=== PATIENT | male | born 1980 | race Caucasian/White ===

== ENCOUNTER → 2023-01-01 08:53 | Outpatient (POV) | payer OTHER, SELFPAY | PROVIDERS: Visit Provider Dermatology | DX: Z00.00 Encounter for general adult medical examination without abnormal findings (principal) ==

== ENCOUNTER 2025-09-06 10:16 | Outpatient (CLI) | payer BC, SELFPAY ==
[2025-09-06 16:46] LABS: Hematocrit 50.1 % (42.0-52.0); Hemoglobin 16.9 g/dL (14.1-18.0); Immature Granulocytes % 0.5 %; Mean Corpuscular HGB Conc 33.7 g/dL (31.8-35.4); Mean Corpuscular Hemoglobin 28.9 pg (27.0-31.2); Mean Corpuscular Volume 85.6 fl (80-94); Nucleated Red Blood Cells % 0 %; Platelet Count 210 K/mm3 (142-424); Red Blood Count 5.85 M/mm3 (4.60-6.20); Red Cell Distribution Width-SD 40.1 fL; White Blood Count 4.4 K/mm3 (4.8-10.8)
[2025-09-06 17:34] LABS: Alanine Aminotransferase 48 U/L (12-78); Albumin Level 4.8 g/dl (3.5-5.0); Albumin/Globulin Ratio 1.7 (1.1-1.8); Alkaline Phosphatase 67 U/L (38-126); Anion Gap 16.2 mEq/L (5-15); Aspartate Amino Transferase 37 U/L (17-59); Bilirubin,Total 0.7 mg/dl (0.2-1.3); Blood Urea Nitrogen 15 mg/dl (9-20); Calcium 9.5 mg/dl (8.4-10.2); Carbon Dioxide 23 mmol/L (22.0-30.0); Chloride 101 mmol/L (98-107); Cholesterol 100 mg/dl (140-200); Creatinine,Serum 1.00 mg/dl (0.66-1.25); Estimated Glomerular Filt Rate 81 ml/min (>60); GFR (African American) 98 ML/MIN (>60); Globulin 2.9 g/dL (1.3-3.2); Glucose 99 mg/dl (74-100); HDL Cholesterol 47 mg/dl (40-60); Potassium 4.2 mmoL/L (3.5-5.1); Sodium 136 mmol/L (136-145); Total Protein,Serum 7.7 g/dl (6.3-8.2); Triglycerides 40 mg/dl (30-150)
[2025-09-06 18:04] LABS: Prostate Specific Ag, Diagnost 0.539 ng/ml (0.0-4.0); Thyroid Stimulating Hormone 1.81 uIU/mL (0.465-4.68)
[2025-09-06 20:14] LABS: Hepatitis C Ab Qual. W/ RFX NEGATIVE (Negative)
[2025-09-06 21:55] LABS: Hemoglobin A1C 5.2 % (4.0-6.0)
[2025-09-07 10:04] LABS: Hepatitis B Surface Antigen Negative (Negative)
--- OUTSIDE RECORDS SUMMARY | 2025-09-07 11:52 | XMS_ITS | Clinical Summary ---
Author Organization [facility] Address [address] [place] [id number] Phone Care Team Providers Care Solutions Architect Name Role Phone Tim Booker Primary Care Provider [phone] Allergies No known active allergies Medications ranitidine (ZANTAC) 75 mg tablet Take 75 mg by mouth as needed for Heartburn. Active beclomethasone dipropionate (QNASL) 80 mcg/actuation HFAA 160 mcg by Nasal route as needed. Active cetirizine (ZYRTEC) 10 mg tablet Take 10 mg by mouth as needed. Active Active Problems Problem Noted Date Diagnosed Date Chest discomfort 04/08/2014 Family History Medical History Relation Name Comments Coronary Art Dis Father Heart Attack Maternal Grandfather Coronary Art Dis Mother Heart Attack Paternal Uncle Relation Name Status Comments Father Alive Maternal Grandfather (Age 54) Mother Alive Paternal Uncle (Age 37) Social History Tobacco Use Types Packs/Day Years Used Date Smoking Tobacco: Former Smokeless Tobacco: Current Alcohol Use Standard Drinks/Week Comments Yes 0 (1 standard drink = 0.6 oz pur e alcohol) occasional Sex and Gender Information Value Date Recorded Sex Assigned at Not on file Legal Sex Male 10:22 AM EDT Gender Identity Not on file Sexual Orientation Not on file Last Filed Vital Signs Vital Sign Reading Time Taken Comments Blood Pressure 137/84 04/08/2014 4:09 PM EDT Pulse 75 04/08/2014 4:09 PM EDT Temperature - - Respiratory Rate - - Oxygen Saturation - - Inhaled Oxygen Concentration - - Weight 78.8 kg (173 lb 12.8 oz) 04/08/2014 4:09 PM EDT Height 170.2 cm (5' 7 ) 04/08/2014 4:09 PM EDT Body Mass Index 27.22 04/08/2014 4:09 PM EDT Plan of Treatment Health Maintenance Due Date Last Done Comments Annual Wellness Exam 1983 DTaP/TDaP/Td (1 - Tdap) 1999 Hepatitis B Vaccine (1 of 3 - 19+ 3-dose series) 1999 Cologuard 2025 Colon Cancer Screening 2025 Colonoscopy 2025 FIT 2025 Sigmoidoscopy 2025 Virtual Colonography 2025 COVID-19 Vaccine (1 - 2024-2 6 season) 2025 Influenza Vaccine (#1) 2025 Meningococcal B Vaccine Aged Out No l onger eligible based on patient's age to complete this topic Pneumococcal Vaccine 0-49 Aged Out No longer eligible based on patient's age to complete this topic Insurance HUMAN PPO on file Care Teams Solutions Architect Relationship Specialty Start Date End Date Tim Booker [address] [place] [id number] PCP - General Family Medicine 04/08/14
== END 2025-09-06 23:59 | disposition home or self-care (01) ==
LOC: LAB.DROPOF 09-07 11:51
PROVIDERS: PCP Nurse Practitioner; Visit Provider Nurse Practitioner
DX: N40.0 Benign prostatic hyperplasia without lower urinary tract symptoms (principal); E66.9 Obesity, unspecified; Z11.59 Encounter for screening for other viral diseases; Z86.39 Personal history of other endocrine, nutritional and metabolic disease
CPT/HCPCS: 80053; 80061; 83036; 84153; 84443; 85025; 86803; 87340; 87389